=== PATIENT | female | born 1970 | race Caucasian/White ===

== ENCOUNTER 2019-02-15 12:39 | Emergency (ER) | payer OTHER ==
[~2019-02-15] VITALS: Ht 165.1 cm; Wt 72.6 kg
--- OUTSIDE RECORDS SUMMARY | ~2019-02-15 | XMS | Clinical Summary ---
Demographics + + + | Address | [address] | | | [place] [address] | + + + | Home Phone | | + + + | Preferred Language | Unknown | + + + | Marital Status | | + + + | Faith Affiliation | Unknown | + + + | Race | Unknown | + + + | Ethnic Group | Unknown | + + + Author + + + | Author | [facility] | | | and [place] | + + + | Organization | [facility] | | | and [place] | + + + | Address | Unknown | + + + | Phone | Unavailable | + + + Support + + +---------+ + | Name | Relationship | Address | Phone | + + +---------+ + | Germán Conley | BRI | Unknown | | + + +---------+ + | Gaye López | ECON | Unknown | | + + +---------+ + Care Team Providers + +------+ + | Care Cathode Ray Tube Assembler Name | Role | Phone | + +------+ + | Jaycee Rizvi PA-C | PP | Unavailable | + +------+ + Allergies + + + +--------+ + | Active Allergy | Reactions | Severity | Noted | Comments | | | | | Date | | + + + +--------+ + | Clarithromycin | | | | | + + + +--------+ + Medications + + + +---------+------+------+-------+ | Medication | Sig | Dispensed | Refills | Star | End | Statu | | | | | | t | Date | s | | | | | | Date | | | + + + +---------+------+------+-------+ | albuterol (PROAIR | 2 puffs every 4-6 | | 0 | 09/2 | | Activ | | HFA) 90 mcg/puff | hours as needed | | | 7/20 | | e | | inhaler | | | | 10 | | | + + + +---------+------+------+-------+ | fexofenadine | Take 180 mg by mouth | | 0 | 10/2 | | Activ | | (VIJAY) 180 mg | Daily. | | | 5/20 | | e | | tablet | | | | 10 | | | + + + +---------+------+------+-------+ | beclomethasone | 1 inhalation twice | | 0 | 01/2 | | Activ | | (QVAR) 40 mcg/puff | daily, rinse mouth | | | 20 | | e | | inhaler | after use | | | 11 | | | + + + +---------+------+------+-------+ | fluticasone | 2 sprays per nostril | | 0 | 01/2 | | Activ | | (FLONASE) 50 | per day | | | 5/20 | | e | | mcg/nasal spray | | | | 11 | | | + + + +---------+------+------+-------+ | Venlafaxine HCl | Take 37.5 mg by | | 0 | 06/0 | | Activ | | 37.5 MG TB24 | mouth Daily. | | | 20 | | e | | | | | | 11 | | | + + + +---------+------+------+-------+ | | Take 1 tablet by | | 0 | | | Activ | | HYDROcodone-acetamin | mouth every 6 hours | | | | | e | | ophen (NORCO) 5-325 | as needed. | | | | | | | mg per tablet | | | | | | | + + + +---------+------+------+-------+ | cyclobenzaprine | Take 10 mg by mouth | | 0 | | | Activ | | (FLEXERIL) 10 mg | 3 times daily as | | | | | e | | tablet | needed. | | | | | | + + + +---------+------+------+-------+ | lamoTRIgine | 25 mg. One tab by | | 0 | 10/2 | | Activ | | (LAMICTAL) 25 MG | mouth daily | | | 5/20 | | e | | tablet | | | | 10 | | | + + + +---------+------+------+-------+ Active Problems + + + | Problem | Noted Date | + + + | DYSURIA | 01/10/2012 | + + + | CELLULITIS, FACE, RIGHT | 06/10/2011 | + + + | ASTHMA, UNSPECIFIED, UNSPECIFIED STATUS | 11/10/2010 | + + + + + | Overview: ICD-10 Record update | + + + + + | ALLERGIC RHINITIS CAUSE UNSPECIFIED | 08/10/2010 | + + + + + | Overview: ICD-10 Record update | + + + + + | BIPOLAR DISORDER UNSPECIFIED | 07/13/2010 | + + + + + | Overview: ICD-10 Record update | + + + +---+ | MIGRAINE HEADACHE | | + +---+ | Mixed anxiety depressive disorder | | + +---+ + + | Overview: PLRU [id number] Decision | + + + +---+ | POSTTRAUMATIC STRESS DISORDER | | + +---+ | NICOTINE ADDICTION | | + +---+ | CARPAL TUNNEL SYNDROME | | + +---+ | OBESITY | | + +---+ Family History + + +------+ + | Medical History | Relation | Name | Comments | + + +------+ + | Depression | Brother | | | + + +------+ + | Kidney disease | Brother | | | + + +------+ + | Heart disease | Father | | murmur | + + +------+ + | High blood pressure | Father | | | + + +------+ + | Arthritis | Mother | | | + + +------+ + | Mental illness | Mother | | | + + +------+ + | COPD | Paternal | | | | | Grandmoth | | | | | er | | | + + +------+ + | Stroke | Paternal | | | | | Grandmoth | | | | | er | | | + + +------+ + + +------+--------+ + | Relation | Name | Status | Comments | + +------+--------+ + | Brother | | | | + +------+--------+ + | Father | | Alive | | + +------+--------+ + | Mother | | Alive | | + +------+--------+ + | Paternal Grandmother | | | | + +------+--------+ + Social History + +-------+ +--------+------+ | Tobacco Use | Types | Packs/Day | Years | Date | | | | | Used | | + +-------+ +--------+------+ | Current Every Day | | 1 | | | | Smoker | | | | | + +-------+ +--------+------+ + + +---------+ + | Alcohol Use | Drinks/We | oz/Week | Comments | | | ek | | | + + +---------+ + | Yes | | | socialy | + + +---------+ + + + + | Sex Assigned at | Date Recorded | | | | + + + | Not on file | | + + + + + + + | Job Start Date | Occupation | Industry | + + + + | Not on file | Not on file | Not on file | + + + + + + + + | Travel History | Travel Start | Travel End | + + + + + + | No recent travel history available. | + + Last Filed Vital Signs + + + + | Vital Sign | Reading | Time Taken | + + + + | Blood Pressure | 118/72 | 08/01/20130 PDT | + + + + | Pulse | 88 | 08/01/20130 PDT | + + + + | Temperature | - | - | + + + + | Respiratory Rate | 16 | 08/01/20130 PDT | + + + + | Oxygen Saturation | - | - | + + + + | Inhaled Oxygen | - | - | | Concentration | | | + + + + | Weight | 85.7 kg (189 lb) | 08/01/20131309 PDT | + + + + | Height | 165.1 cm (5' 5") | 08/01/20131309 PDT | + + + + | Body Mass Index | 31.45 | 08/01/20131309 PDT | + + + + Plan of Treatment + + + + + | Health Maintenance | Due Date | Last Done | Comments | + + + + + | Vaccine: | | | | | Dtap/Tdap/Td (1 - | 2 | | | | Tdap) | | | | + + + + + | Cervical Cancer | | | | | Screening (Pap) | 3 | | | + + + + + | Vaccine: Influenza | | | | | (Season Ended) | 9 | | | + + + + + Results Not on filefrom Last 3 Months Insurance + +--------+ +--------+ +---------+------+ | Payer | Benefi | Subscriber | Effect | Phone | Address | Type | | | t Plan | ID | sue | | | | | | / | | Dates | | | | | | Group | | | | | | + +--------+ +--------+ +---------+------+ | [facility] | PHP | [id number] | 10/17/19 | [phone] | | PPO | | PLAN | PEBB | | 13-Pre | 5 | | | | | STATEW | | sent | | | | | | KAREN | | | | | | + +--------+ +--------+ +---------+------+ + +--------+ +--------+ + + | Guarantor Name | Accoun | Relation to | Date | Phone | Billing Address | | | t Type | Patient | of | | | | | | | | | | + +--------+ +--------+ + + | Shameka Conley | Person | Self [birth year] | [address] | | | al/Daniel | | 1971 | [phone] | [place] | | | rich | | | 0 (Home) | [id number] | | | | | | [phone] | | | | | | | 1 (Work) | | + +--------+ +--------+ + + Advance Directives Patient has advance care planning documents on file. For more information, please contact:[place] [address]
--- OUTSIDE RECORDS SUMMARY | ~2019-02-15 | XMS | Clinical Summary ---
Demographics + + + | Address | [address] | | | [place] [address] | + + + | Home Phone | | + + + | Preferred Language | Unknown | + + + | Marital Status | | + + + | Restorationist Affiliation | Unknown | + + + | Race | Unknown | + + + | Ethnic Group | Unknown | + + + Author + + + | Author | [facility] | | | and [place] | + + + | Organization | [facility] | | | and [place] | [...] Team Providers + +------+ + | Care Certified Maintenance Welder Name | Role | Phone | + [...] + +---+ + + | Overview: PLRU [id number] Decision | + + + +---+ | [...] +---------+------+ | [facility] | PHP | [phone] | 10/17/19 | [phone] | | PPO | | PLAN | [...] | | al/Daniel | | 1971 | [phone] | [place] | | | rich | | | 0 (Home) | [id number] | | | | | | [phone] | | | | | | | 1 (Work) | | + +--------+ +--------+ + + Advance Directives Patient has advance care planning documents on file. For more information, please contact:[facility] [place] [address]
[~2019-02-15 12:39] MED LIST: ANAPROX DS550 MG PO; EFFEXOR XR75 MG PO; FLEXERIL10 MG PO; IBUPROFEN600 MG PO; IBUPROFEN800 MG PO; LAMICTAL25 MG PO; NORCO 5-325 TA1 EACH PO; PERCOCET 5-3251 EACH PO; PROAIR HFA8.5 GM INH; QVAR7.3 G1 INH; ROBAXIN-750750 MG PO
== END 2019-02-15 17:01 | disposition home or self-care (01) ==
LOC: ED 12:39
DX: R10.31 Right lower quadrant pain (principal); F32.9 Major depressive disorder, single episode, unspecified; Z88.1 Allergy status to other antibiotic agents; Z79.899 Other long term (current) drug therapy
CPT/HCPCS: 74177; 76830; 76856; 80053; 81001; 83690; 85025; 96361; 99284-25; J1885; J2405; J7030; Q9967

== ENCOUNTER 2021-03-05 13:25 | Emergency (ER) | payer OTHER ==
[~2021-03-05] VITALS: Ht 165.1 cm; Wt 97.5 kg
[~2021-03-05 13:25] MED LIST changes: +EFFEXOR XR150 MG PO; -EFFEXOR XR75 MG PO; +QVAR REDIHALE10.6 G1 INH; -QVAR7.3 G1 INH
[2021-03-05] MEDS ORDERED: PREDNISONE20 MG PO (13:52)
[2021-03-05] MEDS ORDERED: AMOXICILLIN500 M1 PO (13:52)
== END 2021-03-05 14:04 | disposition home or self-care (01) ==
LOC: ED 13:25
DX: K11.20 Sialoadenitis, unspecified (principal); F17.200 Nicotine dependence, unspecified, uncomplicated; Z88.2 Allergy status to sulfonamides; Z88.1 Allergy status to other antibiotic agents; Z79.899 Other long term (current) drug therapy
CPT/HCPCS: 99283

== ENCOUNTER 2023-03-24 10:50 | Observation (INO) | payer OTHER ==
[~2023-03-24] VITALS: Ht 165.1 cm; Wt 95.4 kg
[~2023-03-24 10:50] MED LIST changes: +AMOXICILLIN500 M1 PO; +PREDNISONE20 MG PO
[2023-03-24] MEDS ORDERED: NAPROSYN500 MG PO (11:59)
[2023-03-24 16:25] VITALS: BP 140/77
--- NOTE | 2023-03-24 16:45 | NUR ---
PT ARRIVED FROM ER. PT TRANSFERSE SELF TO BED WITH STAND BY ASSIST. PT REPORTS DIZZINESS WITH AMBULATION. BMAT LEVEL 3 FOR SAFETY AND LINE AND TUBE MANGEMENT. PT REPORTS 5/10 PAIN IN ABDOMEN BUT DENIES NEED FOR PAIN MEDICATION. LUNG SOUNDS CLEAR. PT ALERT AND ORIENTED TO ALL. HEART TONES REGULAR. ABDOMEN SOFT BUT TENDER ESPICALLY IN RIGHT UPPER QUADRANT. PT DENIES ABDOMINAL DISTENTION. BOWEL TONES HYPOACTIVE. IV FLUIDS STARTED. PT REPROTS SHE IS PASSING GAS AND HER LAST BOWEL MOVEMENT WAS THIS MORNING. NO SKIN ABNORMAILITES SEEN. MEDICATIONS GIVEN (SEE MAR). NO ADDITIONAL REQEUSTS OR COMPLAINTS. AT BEDSIDE. CALL LIGHT WITHIN REACH.
[2023-03-24] MEDS ORDERED: QVAR REDIHALE10.6 GM INH (16:55)
--- NOTE | 2023-03-24 17:23 | NUR ---
MED REC COMPLETE
--- NOTE | 2023-03-24 17:28 | NUR ---
THIS RN TO ROOM WITH DR DEL TORO FOR ROUNDS. PT UPDATED ON PLAN OF CARE. ORDERS PLACED PER DR. DEL TORO VERBAL ORDERS, REPEAT BACK PERFORMED. PT REPORTS 5/10 PAIN IN RIGHT UPPER QUADRANT. PT DENIES NEED FOR ADDITIONAL PAIN MEDICATION. PT REPORTS FEEING "HIGH." BROTH AND ICE WATER PROVIDED. MEDICATIONS GIVEN (SEE MAR). PT DENIES ADDITIONAL REQEUSTS OR COMPLAINTS. FAMILY AT BEDSIDE. CALL LIGHT WITHIN REACH. BED RAILS UP. PTS HOME INHALER SENT TO PHARMACY FOR VAIFICATION.
--- NOTE | 2023-03-24 18:39 | NUR ---
MEDICATIONS DUE. GIVEN ORDERED. PT TOLERATING CLEAR LIQUIDS, NO NAUSEA AT THIS TIME. IV FLUIDS SWITCHED PER MD ORDER. PT REPORTS 1-2/10 PAIN IN ABDOMEN. PT DENIES NEED FOR ADDITIONAL PAIN MEDICATION. GALL BLADDER BOOKLET PROVIDED, PT REPORTS SHE WILL READ IT AND DOSE NOT HAVE ADDITIONAL QUESTIONS AT THIS TIME. NO ADDITIONAL REQUSTS OR COMPLAINTS. CALL LIGHT WITHIN REACH. BED RAILS UP.
--- NOTE | 2023-03-24 19:14 | NUR ---
PT ARRIVED THIS SHIFT FOR CHOLECYSTITIS. PT UP IN ROOM WITH STAND BY ASSIST, REPORTS DIZZINESS AT TIMES WITH ABMULATION. PRN PAIN MEDICATION GIVEN FOR 5/10 PAIN IN ABDOMEN. PT TOLERATING CLEAR LIQUID DIET, TO BE NPO AT MIDNIGHT, ANTICIPATING SURGERY TOMORROW. PT REPORTS SHE IS A NEW DIABETIC, DIET CONTROLLED. BLOOD SUGAR CHECKS WITH MEALS AND HS. IV FLUIDS INFUSING. GALL BALDDER PACKET PROVIDED WITH EDUCATION DONE. PT USES CALL LIGHT AND MAKES NEEDS KNOWN.
--- NOTE | 2023-03-24 19:39 | NUR ---
Assisted Pt 1PA to bathroom. Pt seemed dizzy, and needed a steady hand. Assisted Pt back to bed. Applied SCDs, refilled water with fresh ice and water. Pt stated she was hot, so did not cover Pt with blankets. Retieved nurse's station canopy stringer for Pt's phone. Call light left in reach. No other needs expressed by Pt.
--- NOTE | 2023-03-24 19:44 | NUR ---
REPORT RECEIVED FROM DAY SHIFT RN. PT RESTING IN BED. SAFETY PRECAUTIONS MAINTAINED. CALL LIGHT WITHIN REACH. WILL CONTINUE TO MONITOR.
--- NOTE | 2023-03-24 20:50 | NUR ---
DR DEL TORO AT RN STATION, ASKED MD TO CLARIFY ACCUCHECK ORDERS CURRENTLY BS CHECKS ARE [facility], pt TO BE NPO AT MIDNIGHT. TO PLACE NEW ORDERS FOR Q6H ACCUCHECKS AND INSULIN SS AND TO SWITCH IV FLUIDS. PRIMARY RN JIMBO MADE AWARE.
--- NOTE | 2023-03-24 21:05 | NUR ---
PT ASSESSED AND MEDICATIONS GIVEN. IVF INFUSING PER ORDER. PT STATED THAT THEY ARE IN PAIN BUT WANT TO WAIT ON PAIN MEDICATIONS AT THIS TIME. VSS. SAFETY PRECAUTIONS MAINTIANED. CALL LIGHT WITHIN REACH. WILL CONTINUE TO MONITOR.
[2023-03-24 21:12] VITALS: BP 143/83
[2023-03-25] VITALS (7 sets, daily range): BP systolic 132–148; BP diastolic 70–91
--- NOTE | 2023-03-25 06:00 | NUR ---
PT RESTED WELL DURING THE SHIFT. VSS. PT REFUSED ANY PAIN MEDICATIONS EXCEPT FOR SCHEDULED TYLENOL. PT AMBULATED TO THE BATHROOM. SAFETY PRECAUTIONS MAINTAINED. CALL LIGHT WITHIN REACH. WILL CONTINUE TO MONITOR.
--- NOTE | 2023-03-25 07:26 | NUR ---
REPORT RECEIVED FROM RHEA SARAH. PT RESTING IN BED. PT REPORTS 6/10 ABDOMINAL PAIN AND DENIES NEED FOR ADDITIONAL PAIN MEDICATION AT THIS TIME. PT DENIES NAUSEA. NO ADDITIONAL REQUESTS OR COMPLAINTS. CALL LIGHT WITHIN REACH. BED RAILS UP.
--- NOTE | 2023-03-25 08:07 | NUR ---
MORNING ASSESSMENT AND MEDICATION DUE. PT RESTING IN BED PLAYING ON PHONE. PT REPORTS ONGOING 6/10 ABDOMINAL PAIN IN RIGHT UPPER QUADRANT THAT SHE DESCRIBES "CRAMPING, COMES AND GOES." PT DENIES NEED FOR PAIN MEDICATION. PT DENIES NAUSEA. ABDOMEN SOFT AND NON TENDER BUT FOR RIGHT UPPER QUARDANT AND RIGHT SIDE WHICH IS TENDER WITH PALPATION. BOWEL TONES ACTIVE. LUNG SOUNDS CLEAR. HEART TONES REGULAR. PT REPORTS DIZZINESS WITH AMBULATION IS "MUCH BETTER TODAY." INSULIN HELD RELATED TO PTS NPO STATUS. IV REMAINS WNL. PT STATES ALL HER QUESTIONS HAVE BEEN ANSWERED. DISCHRAGE INSTRUCTIONS AND CRITERIA FOR DISCHARGE REVIEWED WITH PT. PT ASKS QUESTIONS AND IS ABLE TO PEFORM REPEAT BACK. NO ADDITIONAL REQUESTS OR COMPLAINTS AT THIS TIME. CALL LIGHT WITHIN REACH. BED RAILS UP.
--- NOTE | 2023-03-25 08:34 | NUR ---
PT PRE OP WIPE DOWN PERFORMED INDEPENDENTLY AFTER SET UP. NEW GOWN & SOCKS PROVIDED. JEWELRY REMOVED, SCD'S & MACHINE ON BED. CALL LIGHT IN REACH, NO OTHER NEEDS AT THIS TIME.
--- NOTE | 2023-03-25 09:40 | NUR ---
THIS RN TO ROOM TO CHECK ON PT. PT RESTING IN BED, VISITING WITH . PT ADN UPDATED ON PLAN OF CARE. PT REPORTS PAIN REMAINS WELL CONTROLLED AND DENIES NEED FOR PAIN MEDICAITON. NO ADDITIONAL REQUESTS OR COMPLAINTS. CALL LIGHT WITHIN REACH. BED RAILS UP.
--- NOTE | 2023-03-25 10:45 | NUR ---
In to see Shameka and she was taken to surgery early. Parents in the room and were able to give information for assessment. Mom states Shameka is with 2 adult children and has one teenage living in the home. She and spouse work for the [employer]. She does not use any DME. Pt will go home with family on dc. I will follow up with pt after surgery to check for further needs.
--- NOTE | 2023-03-25 10:49 | NUR ---
THIS RN TO ROOM TO CHECK ON PT. PT RESTING ON LEFT SIDE WITH EYES CLOSED. RESPIRATIONS EVEN AND UNLABORED. IV PUMP ALARMING, IV FLUIDS COMPLETE. NEW IV FLUID BAG HUNG. PT CONTINUES RESTING. NO ADDITIONAL REQUESTS OR NEEDS. AT BEDSIDE. CALL LIGHT WITHIN REACH. BED RAILS UP.
--- NOTE | 2023-03-25 11:17 | NUR ---
PTS MOTHER AND FATHER ARRIVED TO BEDSIDE. UPDATED ON PTS STATUS AND PLAN OF CARE. BOTH STATE THEIR QUESTIONS HAVE BEEN ANSWERED.
--- NOTE | 2023-03-25 13:19 | NUR ---
03/25/23 1319 Arthur Hong PATIENT ARRIVED INTO PACU WITH ORAL AIRWAY IN PLACE ON 8L VIA MASK. . PATIENT IS NOT RESPONSIVE TO STIMULI AND HEAD NEEDED TO BE POSITIONED TO MAINTAIN AN OPEN AIRWAY. PATIENT APPEARS COMFORTABLE IN NO DISTRESS AT THIS TIME. REPORT WAS TAKEN FROM TOBY LANTIGUA.
--- NOTE | 2023-03-25 14:24 | NUR ---
PT ARRIVED FROM PACU. PT ALERT AND ORIENTED TO ALL. PT REPORTS 7/10 PAIN IN ABDOMEN. SEE MAR FOR MEDICATION GIVEN. PT DENIES DIZZINESS BUT REPORTS FEELING "SLEEPING AND JUST OFF." PT ENCORUAGED TO REST AT THIS TIME. LUNG SOUNDS CLEAR. PT WEANED TO ROOM AIR AND TOLERATING ROOM AIR WITH OXGYEN SATURATIONS OVER 94%. HEART TONES REGULAR. ABDOMEN SOFT BUT TENDER TO TOUCH. BOWEL TONES HEARD ON RIGHT SIDE. STERI STRIPS OVER LAP SITES X4 REMAIN INTACT. SMALL AMOUNT OF RED DRAINAGE SEEN. EDGES WELL APROXIMATED. PT DENIES NAUSEA. MEDICATIONS GIVEN. PT UPDATED ON PLAN OF CARE. PT VISISTING WITH PARENTS. NO ADDITIONAL REQUESTS OR COMPLAINTS. CALL LIGHT WITHIN REACH. BED RAILS UP.
--- NOTE | 2023-03-25 15:43 | NUR ---
VITALS AND ASSESSMENTS DUE. THIS RN TO ROOM. PT CONTINUES TO REPORTS 7/10 ABDOMINAL PAIN STATING "I JUST NEED TO MOVE." VITAL SIGNS STABLE. PT REPORTS OCCATIONAL DIZZINESS BUT IS ABLE TO GET UP TO RESTROOM WITH STAND BY ASSIST. PT VOIDS 600ML CLEAR YELLOW URINE. ADELA CARE PER PT. PT UP TO AMBULATE IN GEE AND STATES WALKING "REALLY HELPS" WITH PAIN NOW AT 4/10. DR DEL TORO CALLED AND UPDATED. NEW ORDERS GIVEN, ORDERS ENTERED, REPEAT BACK PERFORMED. ABDOMENR REMAINS SOFT BUT TENDER TO TOUCH. BOWEL TONES ACTIVE. STERI STRIPS INTACT WITH OLD RED DRAINAGE SEEN. NO NEW DRAINAGE SEEN. PT TOLEARTING PO AND REQUESTS ADDITIONAL FOOD. CHICKEN NOODLE SOUP ORDERED. SEE MAR FOR MEDICAITON GIVEN. NO ADDITIONAL REQUESTS OR COMPLAINTS. PT RESTING IN BED. PLAN FOR DISCHRAGE REVEIWED. PT STATES HER QUESTIONS HAVE BEEN ANSWERED. CALL LIGHT WITHIN REACH. BED RAILS UP.
--- NOTE | 2023-03-25 16:39 | NUR ---
VITALS AND ASSESSMENT DUE. PT RESTING WITH EYES CLOSED. RESPIRATIONS EVEN AND UNLABORED. PT TOELRATING ROOM AIR WITH OXGYEN SATUARTIONS ABOVE 94%. PT RPEORTS ONGOING 4/10 PAIN THAT IS "BETTER." PT DENIES NEED FOR ADDITIONAL PAIN MEDICAITON STATING THE PAIN IS TOLEARBLE. PT DENIES NASUEA. TOLERATING PO FOOD AND FLUID. IV SALINE LOCKED AT THIS TIME. ABDOMEN REMAINS SOFT BUT TENDER. STERI STRIPS INTACT, NO NEW DRAINAGE NOTED. PT REPROTS SHE FEELS READY TO GO HOME, WILL CONSULT MD. NO ADDITIONAL REQUESTS OR COMPLAINTS. CALL LIGHT WITHIN REACH. BED RAILS UP.
--- NOTE | 2023-03-25 17:45 | NUR ---
VITALS AND ASSESSMENT DUE. PT RESTING WITH EYES CLOSED. RESPIRATIONS EVEN AND UNLABORED. RR OF 14. PT AWAKENS TO VOICE. PT RPEORTS 6/10 PAIN IN ABDOMEN AND REQUESTS ADDITIONAL PAIN MEDICATION. ADDITIONAL TABLET OF PERCOCET GIVEN TO TITRATE UP TO FULL DOSE. PT DENIES NAUSEA. ABDOMINAL INCISIONS UNCHANGED WITH STERI STRIPS INTACT AND NEW NEW DRAINAGE SEEN. ABDOMEN SOFT BUT TENDER. PT CONTINUES TO STATE SHE IS READY TO GO HOME. PT UPDATED ON PLAN OF CARE. NO ADDITIONAL REUQESTS OR COMPLAINTS. CALL LIGHT WITHIN REACH. BED RAILS UP. AT BEDSIDE.
--- NOTE | 2023-03-25 18:00 | NUR ---
PT POST OP DAY ZERO AFTER LAPAROSCOPIC CHOLECYSTECTOMY. PT UP TO AMBULATE IN GEE WITH STAND BY ASSIST. PT ADVANCED TO 60G CARB DIET AND TOLERATING PO INTAKE WITHOUT NAUSEA. PRN PAIN MEDICATION GIVEN FOR ABDOMINAL PAIN TO RIGHT SIDE. BOWEL TONES ACTIVE. ABDOMEN SOFT BUT TENDER TO TOUCH. BLOOD SUGARS TAKEN WITH SLIDING SCALE INSULIN GIVEN. NICOTENE PATCH IN PLACE. DISCHRAGE INSTRUCTIONS REVIEWED WITH PT. PT ANTICIPATING DISCHARGE SOON. PT VOIDING QUANITTY SUFFICIENT. PT USES CALL LIGHT AND MAKES NEEDS KNOWN.
--- NOTE | 2023-03-25 18:44 | NUR ---
THIS RN TO ROOM TO CHECK ON PT. PT UP IN ROOM AND REPORTS SHE IS READY TO GET DRESSED AND WOULD LIKE TO AMBUALTE. PT EPROTS 5/10 PAIN THAT IS BETTER WITH AMBULATION. PT DENIES NEED FOR ADDITIONAL PAIN MEDICATION. PT UP TO AMBULATE IN GEE WITH SPOUSE. DR. DELT ORO UPDATED, AWAITING NEW ORDERS. NO ADDITIONAL REQUESTS OR COMPLAINTS. CALL LIGHT WITHIN REACH.
[2023-03-25] MEDS ORDERED: NICOTINE1 EAC2 TD (18:54)
[2023-03-25] MEDS ORDERED: OXYCODONE-ACET1 EAC1 PO (18:54)
[2023-03-25] MEDS ORDERED: ACETAMINOPHEN500 MG PO (18:54)
--- NOTE | 2023-03-25 18:57 | NUR ---
DR DEL TORO TO BEDSIDE FOR ROUNDS AND GIVES DISCHARGE ORDERS. PT HAS ALREADY DRESSED SELF, NO ASSISTANC NEEDED. IV DC'D PER PROTOCOL. HARJINDER AND BRITTANIE APPLIED. DISCHRAGE INSTRUCTIONS REVIEWED WITH PT AND PTS SPOUSE. PT AND SPOUSE VERBALIZE UNDERSTANDING OF INSTURCTIONS, MEDICATIONS, FOLLOW UP, AND ACTIVITY RESTRICTIONS. PT STATES ALL HER QUESTIONS HAVE BEEN ANSWERED. PT WHEELED FROM MED/SURG WITH ALL BELONGINS. NO ADDITIONAL REQUESTS OR CONCERNS.
--- NOTE | 2023-03-25 19:01 | HP ---
[facility] [address], [place] [address] Signed ADMISSION DATE: 03/24/2023 REASON FOR ADMISSION: Acute acalculous cholecystitis. HISTORY OF PRESENT ILLNESS: This 52-year-old white woman, who is a patient of COLTEN Murillo. She was having right upper abdominal pain highly suggestive of biliary disease. She underwent a CT scan under the direction of COLTEN Murillo. This was essentially normal as regards the gallbladder. A CCK-HIDA test was performed only 2 days ago, which was markedly positive including reproduction of her symptoms and a decreased ejection fraction. Her symptoms worsened and she presented to the emergency room where she was evaluated by Dr. Orellana. Her symptoms were highly typical of acute cholecystitis including tenderness in right subcostal area. Dr. Orellana did discuss this with me and an ultrasound was performed, which continues to show no sign of stones or intrahepatic ductal dilatation. She is admitted for further evaluation and care for the underlying diagnosis of acute acalculous cholecystitis. PAST MEDICAL HISTORY: She does smoke on her routine basis, smoking approximately 1 pack of cigarettes daily. She does have underlying asthma for which she occasionally uses a bronchodilator. She has had hysterectomy and prior to that tubal ligation. She denies any history of hypertension. She does describe history of kidney stones, though that has not recently been a problem. She additionally has newly diagnosed type 2 diabetes. She also describes depression. REVIEW OF SYSTEMS: She denies any shortness of breath or chest pain at this time. She does have smoking. SOCIAL HISTORY: She is . Her accompanies her at this time as does her father and mother. She lives in [place]. Her children are grown both in their late 20s. She lives in [place]. PHYSICAL EXAMINATION: GENERAL: Pleasant white woman, who does not look systemically toxic at this time. VITAL SIGNS: Show a temperature 97.9, pulse 84, blood pressure 140/77. Trachea is midline. CHEST: Clear. Electronically Signed By: FLORECITA DEL TORO MD 03/25/23 1901 PATIENT NAME: PAUL BIRCH HISTORY AND PHYSICAL DATE OF : 74 REPORT #: [id number] PHYSICIAN: FLORECITA DEL TORO MD PCP: JOSH MCCLURE REPORT IS CONFIDENTIAL AND NOT TO BE RELEASED WITHOUT AUTHORIZATION [facility] [address] [place] [id number] Signed HEART: Regular without murmur. ABDOMEN: Obese, but soft. There is right subcostal tenderness, which is significant. There is no palpable mass. She has no ascites. EXTREMITIES: Show no clubbing, cyanosis, or edema. LABORATORY STUDIES: Show white count of 10.5, hematocrit 41.1, platelets 244,000. Chem profile is normal including a creatinine of 0.80. Her alkaline phosphatase 68, ALT 64. Urinalysis is essentially normal, specific gravity 1.025, pH 6.5. Ultrasound images were reviewed showing no evidence of stone. Posterior wall of the gallbladder in relation to the does look thickened to my examination. Interpretation of the ultrasound showed a contracted gallbladder, consider nonspecific without evidence of acute cholecystitis otherwise. Her CCK HIDA test, which was performed on March 22, 2023, showed an ejection fraction at 30 minutes of 9% with reproduction of her symptoms. ASSESSMENT: The patient has clinical and imaging evidence of acute acalculous cholecystitis. I discussed in detail with the patient and family with the white board, the pathophysiology of the problem and recommendation of treatment to include cholecystectomy preferred by laparoscopic approach. The risk of bleeding, infection, bile duct injury, failure to cure her problem, need for open procedure were reviewed in detail. Additionally, further findings are noted that require attention, would recommend they be undertaken as well. She agrees. For today, we will await fluid resuscitation, IV antibiotics, parenteral pain medication for surgery tomorrow. Florecita Del Toro MD JM/MODL /[id number] cc: MD Josh Ledbetter PA Electronically Signed By: FLORECITA DEL TORO MD 03/25/23 1901 PATIENT NAME: PAUL BIRCH HISTORY AND PHYSICAL DATE OF : 74 REPORT #: [id number] PHYSICIAN: FLORECITA DEL TORO MD PCP: JOSH MCCLURE REPORT IS CONFIDENTIAL AND NOT TO BE RELEASED WITHOUT AUTHORIZATION [facility] [address] [place], [place] [address], [place] [address] Signed Copies: EDEN ORELLANA MD, LINDA PA ~ Electronically Signed By: FLORECITA DEL TORO MD 03/25/23 1901 PATIENT NAME: PAUL BIRCH HISTORY AND PHYSICAL DATE OF : 74 REPORT #: [id number] PHYSICIAN: FLORECITA DEL TORO MD PCP: JOSH MCCLURE REPORT IS CONFIDENTIAL AND NOT TO BE RELEASED WITHOUT AUTHORIZATION
--- NOTE | 2023-03-25 19:01 | OR ---
[facility] [address], [place] [address] Signed DATE OF OPERATION: 03/25/2023 SURGEON: Florecita Del Toro MD PREOPERATIVE DIAGNOSIS: Acute acalculous cholecystitis. POSTOPERATIVE DIAGNOSES: 1. Acute acalculous cholecystitis. 2. 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 PROCEDURES: 1. Laparoscopic cholecystectomy with intraoperative cholangiogram. 2. Surgeon-directed fluoroscopy. ANESTHESIA: General endotracheal, Peter Darrell, CUP MACHINE OPERATOR and local 10 mL of 0.25% Marcaine with epinephrine. INDICATION: This 52-year-old white woman was admitted to the emergency room yesterday having rather typical biliary colic symptoms. She had undergone a CT scan more recently which was negative and a CCK-HIDA test quite recently which was abnormal. Her symptoms upon presentation were severe right subcostal and epigastric pain radiating to right subscapular area. Her evaluation in the emergency room did include an ultrasound which confirmed no evidence of gallstones in the gallbladder. She has been fluid resuscitated, given intravenous antibiotics, parenteral pain medication and so forth. She is now to undergo cholecystectomy preferred by laparoscopic approach. The risk of bleeding, infection, bile duct injury, need for open procedure and of course failure to cure her symptoms were all reviewed in detail. She understands and wished to proceed. FINDINGS: Indeed the gallbladder was acutely inflamed. The liver had mild fatty infiltration, but not much. There was an enlarged pericholecystic lymph node as well. Cholangiogram was normal, though morphine was required to allow for retrograde visualization of the proximal common hepatic duct. The gallbladder once excised showed profound cholesterolosis, inflammation and a bit of adherent cholesterol debris. The cholangiogram was normal. DESCRIPTION OF PROCEDURE: Electronically Signed By: FLORECITA DEL TORO MD 03/25/23 1901 PATIENT NAME: PAUL BIRCH OPERATIVE REPORT DATE OF : 74 REPORT #: [id number] PHYSICIAN: FLORECITA DEL TORO MD PCP: JOSH MCCLURE REPORT IS CONFIDENTIAL AND NOT TO BE RELEASED WITHOUT AUTHORIZATION [facility] [address] [place], [place] [address] Signed The patient was brought to the operating room, given a general endotracheal anesthetic. Preoperative antibiotic Ancef had been given. Sequential compression device stockings were used and heparin subcutaneously administered. After satisfactory general endotracheal anesthesia, the abdomen was prepared with a chlorhexidine solution and draped sterilely. She did have abdominal obesity. An infraumbilical incision was made and using an open Roxana cannula technique, pneumoperitoneum was achieved to a level of 14 mmHg with carbon dioxide gas. Intra-abdominal inspection showed no sign of ascites or carcinomatosis. The liver was obscuring the gallbladder at that point. Three additional trocars were placed in their usual configuration in the subxiphoid, right midclavicular, and right anterior axillary line. The gallbladder was grasped and elevated cephalad, demonstrating inflamed gallbladder. Using blunt and electrocautery dissection, the triangle of Calot was dissected free ultimately identifying the cystic duct quite well. Clips were been applied to the cystic arterial branches as necessary. A clip was applied across the gallbladder cystic duct junction and a transverse choledochotomy made in the cystic duct. Passage of an Dillon type cholangiocatheter system into the cystic duct allowed for intraoperative cholangiography showing free flow of contrast in the biliary tree with prompt emptying into the duodenum. Despite additional injection, retrograde filling to the common hepatic duct was not forthcoming though a pancreatogram was noted. 2 mg of morphine was administered intravenously and a repeat cholangiogram showed some contrast in the proximal common hepatic duct, but not filling of the entire biliary tree. This was deemed adequate to assure that the common hepatic duct was normal. The catheter was removed and the cystic duct was triply clipped and divided and the gallbladder dissected free in a retrograde fashion using electrocautery. A small rent in the gallbladder allowed for some small leakage of bile and on that basis the gallbladder was placed in an endobag and extracted through the infraumbilical port. The gallbladder was opened by the circulating nurse and observed to have inflammatory change in the mucosa and some adherent cholesterol debris. Irrigation was undertaken of subhepatic space, although there was generally good hemostasis. Some Arash powdered agent was applied to the raw surface of the liver as well. Excess irrigation fluid was suctioned free. The trocars were removed under direct visualization showing no sign of bleeding. Once the trocars were removed, the infraumbilical fascial incision was reapproximated with interrupted 0 Vicryl suture. 10 mL of 0.25% Marcaine was injected locally. The skin was then closed with interrupted 3-0 Vicryl. Steri-Strips were applied. The patient was ultimately extubated and transferred to the recovery room in good condition having suffered no complications. Sponge, needle, and instrument counts reported as correct x3. Electronically Signed By: FLORECITA DEL TORO MD 03/25/23 190 PATIENT NAME: PAUL BIRCH OPERATIVE REPORT DATE OF : 74 REPORT #: [id number] PHYSICIAN: FLORECITA DEL TORO MD PCP: JOSH MCCLURE REPORT IS CONFIDENTIAL AND NOT TO BE RELEASED WITHOUT AUTHORIZATION [facility] [address] [place], [place] [address] Signed MD LATANYA Watters/MODL /[id number] cc: COLTEN Murillo MD Copies: JOSH MCCLURE WILLIAM S MD ~ Electronically Signed By: FLORECITA DEL TORO MD 03/25/231900 PATIENT NAME: PAUL BIRCH DENISE OPERATIVE REPORT DATE OF : 74 REPORT #: [id number] PHYSICIAN: FLORECITA DEL TORO MD PCP: JOSH MCCLURE REPORT IS CONFIDENTIAL AND NOT TO BE RELEASED WITHOUT AUTHORIZATION
--- NOTE | 2023-03-29 12:08 | PATH ---
[facility] [address] [place], [place] [address] Signed SPECIMEN(S): A GALLBLADDER SPECIMEN SOURCE: A. GALLBLADDER CLINICAL HISTORY: Abdominal pain. Acute acalculous cholecystitis. FINAL PATHOLOGIC DIAGNOSIS: Gallbladder, cholecystectomy: - Chronic calculous cholecystitis. - Benign gallbladder with mild mucosal chronic inflammation. - Negative for calculi. JVR:goldy:C2NR MICROSCOPIC EXAMINATION: Histologic sections of all submitted blocks are examined by light microscopy. These findings, together with the gross examination, support the pathologic diagnosis. GROSS DESCRIPTION: The specimen, labeled and designated "sanjana Preciado," is received in formalin and consists of: Specimen: Previously opened gallbladder. Dimensions: 6.5 x 2.4 cm. Serosa: Violaceous, smooth. Cystic Duct: Inked, unobstructed. Calculi: Calculi are not grossly identified within the container or within the gallbladder. Mucosa: Dark green and velvety. Wall thickness: 0.5 cm. Lymph node: No pericystic lymph nodes are grossly identified. Additional: None. Application Development Director sections are submitted in (A1). JS (under the direct supervision of a pathologist) The Gross Description was prepared using a voice recognition system. The report was reviewed for accuracy; however, sound-alike word errors, addition and/or deletions may occur. If there is any question about this report, please contact Client Services. PERFORMING LABORATORY: PATIENT NAME: PAUL PRECIADO PATHOLOGY DATE OF : 74 REPORT #: [id number] PHYSICIAN: KEYVN VALLE PCP: JOSH MCCLURE REPORT IS CONFIDENTIAL AND NOT TO BE RELEASED WITHOUT AUTHORIZATION [facility] [address] [place], [place] [address] Signed The technical component was performed by [employer], [address] [place] [id number] (CLIA# [id number]). Professional interpretation was performed by [facility] - [address] [address] (CLIA#: [id number]). Diagnostician: Sebastian Morgan MD Pathologist Electronically Signed 03/29/2023 Copies: ~ PATIENT NAME: PAUL PRECIADO PATHOLOGY DATE OF : 74 REPORT #: [id number] PHYSICIAN: KEVYN VALLE PCP: JOSH MCCLURE REPORT IS CONFIDENTIAL AND NOT TO BE RELEASED WITHOUT AUTHORIZATION
== END 2023-03-25 19:00 | disposition home or self-care (01) ==
LOC: ED 10:50 → MS 10:52
PROVIDERS: ADMIT Surgery; ATTEND Surgery
PROC: BF121ZZ Fluoroscopy of Gallbladder using Low Osmolar Contrast (ICD-10-PCS; 2023-03-25)
PROC: 0FT44ZZ Resection of Gallbladder, Percutaneous Endoscopic Approach (ICD-10-PCS; principal; 2023-03-25 13:45)
DX: K81.2 Acute cholecystitis with chronic cholecystitis (principal); Z88.2 Allergy status to sulfonamides; Z88.8 Allergy status to other drugs, medicaments and biological substances; F17.200 Nicotine dependence, unspecified, uncomplicated
CPT/HCPCS: 36415; 74300; 76705; 80053; 81003; 83690; 85025; A9270; J0690; J1100; J1170; J1644; J1815; J1885; J2270; J2274; J2405; J2704; J3010; J7030; J7121; Q9967

== ENCOUNTER 2023-07-25 06:25 | Day surgery (SDC) | payer OTHER ==
[~2023-07-25] VITALS: Ht 165.1 cm; Wt 91.5 kg
[~2023-07-25 06:25] MED LIST changes: +ACETAMINOPHEN500 MG PO; +NAPROSYN500 MG PO; +NICOTINE1 EAC2 TD; +OXYCODONE-ACET1 EAC1 PO; +QVAR REDIHALE10.6 GM INH
[2023-07-25 06:42] VITALS: BP 112/73
--- NOTE | 2023-07-25 07:46 | NUR ---
EXERCISED MINISTRY OF PRESENCE PT TALKED OF FAMILY AND HEALTH HISTORY. PRAYED FOR SUCCESSFUL PROCEDURE ONGOING GOOD HEALTH.
--- NOTE | 2023-07-25 08:54 | NUR ---
07/25/23 0854 Anju Urbina 0835- PT ARRIVES TO PACU, LEFT LATERAL POSITION. LR INFUSING TO RH IV, O2 AT 3L PER NC. ABD SOFT, NON DISTENDED. PT WAKES TO LOUD VERBAL STIMULI AND LOOKS AROUND. DENIES PAIN OR NAUSEA. ENCOURAGED TO PASS GAS. PT BACK TO RESTING AT THIS TIME. ALL MONITORS IN PLACE, WILL CONTINUE TO MONITOR. 0840- PT RESTING, 1ST LITER LR COMPLETE. IV SALINE LOCKED. BREATHING EVEN AND NON LABORED. 0848- PT OLACED ON ROOM AIR AT THIS TIME. PASSING GAS, NO SIGNS OF DISTRESS. WILL CONTINUE TO MONITOR.
[2023-07-25 09:26] VITALS: BP 118/85
--- NOTE | 2023-07-29 19:07 | OR ---
[facility] [address] [place], [place] [address] Signed DATE OF OPERATION: 07/25/2023 SURGEON: Florecita Del Toro MD PREOPERATIVE DIAGNOSIS: Colon screening. POSTOPERATIVE DIAGNOSES: Extensive diverticulosis. PROCEDURE: Total colonoscopy to cecum. ANESTHESIA: Intravenous sedation, fentanyl 200 mcg and Versed 9 mg. INDICATIONS FOR THE PROCEDURE: This 52-year-old white woman is a patient of COLTEN Murillo and recently underwent cholecystectomy by me. She has recovered from that well. She is here at this time for screening colonoscopy based on her age of 52 years. She has no symptoms of bleeding, diarrhea, or constipation. No family history of colon cancer. She understands the risk of colonoscopy including but not limited to bleeding, infection, and perforation and wished to proceed. FINDINGS: The prep was adequate. Complete colonoscopy was undertaken to the cecum. She had numerous diverticula of the sigmoid and left colon and additional scattered diverticula throughout the remaining colon. There was no evidence of polyps, colitis, or cancer. DESCRIPTION OF PROCEDURE: The patient was brought to the endoscopy suite and placed in lateral decubitus position given intravenous sedation to the point of slurred speech and nystagmus. Full cardiopulmonary monitoring was maintained. Digital rectal examination was normal. An Olympus video colonoscope was passed in the rectum and manipulated throughout the colon. Various manipulations were required to allow for complete passage to the cecum, and ultimately it was accomplished. Irrigation was undertaken as necessary. The scope was withdrawn and examination throughout confirmed only diverticulosis throughout the colon, most dominantly in the sigmoid where both small and large mouth diverticula were noted. The scope was ultimately removed. The patient taken to the recovery room in Electronically Signed By: FLORECITA DEL TORO MD 07/29/23 1907 PATIENT NAME: PAUL BIRCH OPERATIVE REPORT DATE OF : 74 REPORT #: [id number] PHYSICIAN: FLORECITA DEL TORO MD PCP: JOSH MCCLURE REPORT IS CONFIDENTIAL AND NOT TO BE RELEASED WITHOUT AUTHORIZATION [address] [place], [place] [address] Signed good condition. CONCLUDING DIAGNOSIS: Diverticulosis. PLAN: Recommend high-fiber diet. Repeat colonoscopy in 10 years or sooner if symptoms should occur. MD LATANYA Watters/MODL /[id number] cc: COLTEN Murillo Copies: JOSH MCCLURE ~ Electronically Signed By: FLORECITA DEL TORO MD 07/29/23 1907 PATIENT NAME: PAUL BIRCH DENISE OPERATIVE REPORT DATE OF : 74 REPORT #: [id number] PHYSICIAN: FLORECITA DEL TORO MD PCP: JOSH MCCLURE REPORT IS CONFIDENTIAL AND NOT TO BE RELEASED WITHOUT AUTHORIZATION
== END 2023-07-25 09:37 | disposition home or self-care (01) ==
LOC: DS 06:25 → OPS 06:25 → DS 07:30 → OPS 07:30
PROVIDERS: ATTEND Surgery
PROC: 0DJD8ZZ Inspection of Lower Intestinal Tract, Via Natural or Artificial Opening Endoscopic (ICD-10-PCS; principal; 2023-07-25 07:30)
DX: Z12.11 Encounter for screening for malignant neoplasm of colon (principal); K57.30 Diverticulosis of large intestine without perforation or abscess without bleeding; F17.210 Nicotine dependence, cigarettes, uncomplicated; J68.3 Other acute and subacute respiratory conditions due to chemicals, gases, fumes and vapors; E66.9 Obesity, unspecified; Z68.33 Body mass index [BMI] 33.0-33.9, adult; Z90.711 Acquired absence of uterus with remaining cervical stump
CPT/HCPCS: 99153; G0500; J2250; J3010; J7121